=== PATIENT | female | born 1970 | race Caucasian/White ===

== ENCOUNTER 2019-01-09 12:17 | Emergency (ER) | payer BC ==
[~2019-01-09] VITALS: Ht 167.6 cm; Wt 68.2 kg
[2019-01-09 12:42] VITALS: Ht 167.6 cm; Wt 68.2 kg
[2019-01-09] MEDS ORDERED: TOPAMAX200 MG PO (12:44)
[2019-01-09] MEDS ORDERED: PROTONIX40 MG PO (12:44)
[2019-01-09 13:12] LABS: BASOPHILS 0.4 % (0-2); EOSINOPHILS 0.6 % (0-7); HEMATOCRIT 49.1 % (36.0-48.0); HEMOGLOBIN 17.6 g/dL (12-16); IMMATURE GRANULOCYTES 0.6 % (0-5); LYMPHOCYTES 13.6 % (15-50); MCH 29.6 pg (26.0-34.0); MCHC 35.8 g/dL (31.0-37.0); MCV 82.7 fL (80.0-100.0); MEAN PLATELET VOLUME 9.7 fL (7.4-10.4); MONOCYTES 6.7 % (2-11); NEUTROPHILS 78.1 % (40-80); PLATELET COUNT 537 10x3/uL (130-400); RBC 5.94 10x6/uL (4.00-5.40); RDW 13.1 % (11.5-14.5)
[2019-01-09 13:26] LABS: ALBUMIN 4.8 g/dL (3.4-5.0); ALKALINE PHOSPHATASE 113 U/L (46-116); ALT (SGPT) 41 U/L (10-68); BILIRUBIN - TOTAL 0.54 mg/dL (0.2-1.3); CALC OSMOLALITY 275 mosm/kg (275-300); CALCIUM 10.6 mg/dL (8.5-10.1); CARBON DIOXIDE 20.8 mmol/L (21.0-32.0); CHLORIDE - SERUM 96 mmol/L (98-107); CREATININE - SERUM 1.4 mg/dL (0.6-1.3); GLUCOSE 146 mg/dL (74-106); POTASSIUM - SERUM 4.4 mmol/L (3.5-5.1); PROTEIN - SERUM 9.5 g/dL (6.4-8.2); SODIUM 132 mmol/L (136-145); UREA NITROGEN 35 mg/dL (7-18); eGFR NON AFRICAN AMERICAN 43 mL/min (90-120)
[2019-01-09 13:37] LABS: CKMB 1.7 U/L (0.0-3.6); CREATINE KINASE 116 UL (21-215)
[2019-01-09 13:38] LABS: TROPONIN-I < 0.017 ng/mL (0.000-0.060)
[2019-01-09 16:38] VITALS: BP 140/80
== END 2019-01-09 16:40 | disposition home or self-care (01) ==
LOC: D.ER 12:17
PROVIDERS: Emergency Medicine
DX: N28.9 Disorder of kidney and ureter, unspecified (principal); R53.83 Other fatigue; D75.1 Secondary polycythemia